=== PATIENT | female | born 1955 | race Caucasian/White ===

== ENCOUNTER 2017-08-23 16:16 | Emergency (ER) | payer OTHER ==
[2017-08-23] MEDS: IV NORMAL SALINE 1000ML BAG 1,000 ML IV ×2 (17:22)
[2017-08-23] MEDS: ONDANSETRON PF 4 MG/2 ML VIAL. IV ×2 (17:23)
[2017-08-23] MEDS: KETOROLAC 15 MG/ML VIAL. IV ×2 (17:26)
[2017-08-23] MEDS: MORPHINE SULFATE 4 MG/ML DISP.SYRIN. IV ×2 (17:28)
[2017-08-23 17:32] LABS: INFLUENZA A PATIENT POSITIVE (NEGATIVE); INFLUENZA B PATIENT NEGATIVE (NEGATIVE); OBC FLU VALID
[2017-08-23] MEDS: OXYMETAZOLINE 0.05% NASAL SPRAY 30ML BOTTLE. NS ×2 (18:05)
[2017-08-23] MEDS: OSELTAMIVIR 75 MG CAPSULE PO ×2 (18:05)
== END 2017-08-23 19:18 | disposition home or self-care (01) ==
LOC: ER 16:16
DX: J09.X2 Influenza due to identified novel influenza A virus with other respiratory manifestations (principal); K21.9 Gastro-esophageal reflux disease without esophagitis
CPT/HCPCS: 71045; 87804; 87804-59; 93005; 96361; 96374; 96375; 99285-25; J1885; J2270; J2405; J7030

== ENCOUNTER 2019-12-29 07:35 | Emergency (ER) | payer MEDICAID ==
[~2019-12-29] VITALS: Ht 152.4 cm; Wt 79.0 kg
[~2019-12-29 07:35] MED LIST: ALLERGY PILL; GLAUCOMA DROPS; HYDR5SUS PO; IBUP-1027 PO; LORA-434 PO; MELA3TAB4 PO; OMEP20TA63 PO; OSEL75CA PO
[2019-12-29 07:54] VITALS: BP 158/78
[2019-12-29] MEDS ORDERED: NAPR-514 PO (08:09)
[2019-12-29] MEDS ORDERED: SULF1TAB24 PO (08:09)
--- NOTE | 2019-12-29 08:09 | PHYS DOC ---
Past Medical History Past Medical History: Alcoholism, Glaucoma Past Surgical History: No Surgical History Smoking Status: Light Tobacco Smoker Alcohol Use: Occasionally Drug Use: None General Adult EDM: Chief Complaint: INSECT BITE HPI: HPI: Patient is a 64-year-old female who presents approximately 3 weeks after she had what she describes as an insect bite on her right lower abdomen. She thinks it was infected it is drained and she has had no problems with it for couple of weeks now. She is worried because her still little redness around it. She also has some swelling around her left acromioclavicular joint that she is worried about. Does hurt a little bit there is no trauma to the area. [] Review of Systems: Review of Systems: Constitutional: Denies fever or chills. [] Eyes: Denies change in visual acuity. [] HENT: Denies nasal congestion or sore throat. [] Respiratory: Denies cough or shortness of breath. [] Cardiovascular: Denies chest pain or edema. [] GI: Denies abdominal pain, nausea, vomiting, bloody stools or diarrhea. [] : Denies dysuria. [] Musculoskeletal: Per HPI [] Integument: Reports healing insect bite [] Neurologic: Denies headache, focal weakness or sensory changes. [] Endocrine: Denies polyuria or polydipsia. [] Lymphatic: Denies swollen glands. [] Psychiatric: Reports anxiety. [] Heart Score: Risk Factors: Risk Factors: DM, Current or recent (<one month) smoker, HTN, HLP, family history of CAD, obesity. Risk Scores: Score 0 - 3: 2.5% MACE over next 6 weeks - Discharge Home Score 4 - 6: 20.3% MACE over next 6 weeks - Admit for Clinical Observation Score 7 - 10: 72.7% MACE over next 6 weeks - Early Invasive Strategies Allergies: Allergies: Allergies Coded Allergies Type Severity Reaction Last Updated Verified No Known Drug Allergies 08/23/17 No Physical Exam: PE: Constitutional: Well developed, well nourished, no acute distress, non-toxic appearance. [] HENT: Normocephalic, atraumatic, bilateral external ears normal, oropharynx moist, no oral exudates, nose normal. [] Eyes: PERRLA, EOMI, conjunctiva normal, no discharge. [] Neck: Normal range of motion, no tenderness, supple, no stridor. [] Cardiovascular:Heart rate regular rhythm, no murmur [] Lungs & Thorax: Bilateral breath sounds clear to auscultation [] Abdomen: Bowel sounds normal, soft, no tenderness, no masses, no pulsatile masses. [] Skin: She has what appears to be a healing cutaneous abscess there is some erythema but no significant induration and no abscess [] Back: No tenderness, no CVA tenderness. [] Extremities: Some pain and swelling over left acromioclavicular joint [] Neurologic: Alert and oriented X 3, normal motor function, normal sensory function, no focal deficits noted. [] Psychologic: Anxious [] EKG: EKG: [] Radiology/Procedures: Radiology/Procedures: [] Course & Med Decision Making: Course & Med Decision Making Pertinent Labs and Imaging studies reviewed. (See chart for details) [] Dragon Disclaimer: Dragon Disclaimer: This electronic medical record was generated, in whole or in part, using a voice recognition dictation system. Departure Departure Impression: Primary Impression: Cutaneous abscess of abdominal wall Disposition: 01 HOME, SELF-CARE Condition: STABLE Referrals: UNKNOWN PCP NAME (PCP) Patient Instructions: Abscess, Care After, Spider Bite Additional Instructions: If the wound on your abdomen increases in size redness or becomes painful go ahead and start the antibiotics that I prescribed for you today. Scripts Naproxen (NAPROXEN) 500 Mg Tablet 1 TAB PO BID PRN for PAIN, #30 TAB 1 Refill Prov: CRISTÓBAL CAMARGO DO 12/29/19 Sulfamethoxazole/Trimethoprim (BACTRIM DS TABLET) 1 Each Tablet 1 TAB PO BID for abscess, #20 TAB Prov: CRISTÓBAL CAMARGO DO 12/29/19 CRISTÓBAL CAMARGO DO Dec 29, 2019 08:09
== END 2019-12-29 08:31 | disposition home or self-care (01) ==
LOC: ER 07:35
DX: L02.211 Cutaneous abscess of abdominal wall (principal); R22.32 Localized swelling, mass and lump, left upper limb; Z72.0 Tobacco use; W57.XXXA Bitten or stung by nonvenomous insect and other nonvenomous arthropods, initial encounter; Y93.89 Activity, other specified; Y92.89 Other specified places as the place of occurrence of the external cause; Y99.8 Other external cause status
CPT/HCPCS: 99283